=== PATIENT | female | born 1965 | race Caucasian/White ===

== ENCOUNTER 2019-03-01 14:45 | Emergency (ER) | payer SELFPAY ==
[2019-03-01] MEDS ORDERED: Ondansetron PF 4 MG/2 ML Vial ONE (14:57)
[2019-03-01] MEDS ORDERED: Rocuronium Bromide 10 MG/ML (10ML VIAL) ONE (15:00)
[2019-03-01 15:13] LABS: #Basophils 0.2 thou/uL (0.0-0.2); #Eosinphils 0.3 thou/uL (0.0-0.7); #Lymphocytes 5.5 thou/uL (1.20-3.40); #Monocytes 0.6 thou/uL (0.11-0.59); #Neutrophils 7.5 thou/uL (1.40-6.50); %Basophils 1.5 % (0.0-1.0); %Eosinophils 2.3 % (0.0-10.0); %Lymphocytes 39.1 % (21.0-51.0); %Monocytes 4.3 % (0.0-10.0); %Neutrophils 52.9 % (42.0-75.0); Hemoglobin 15.1 g/dL (12.0-16.0); Mean Corpuscular HGB CONC 33.1 g/dL (32.0-36.0); Mean Corpuscular Hemoglobin 29.3 pg (27.0-31.0); Mean Corpuscular Volume 88.6 fL (78.0-98.0); Mean Platelet Volume 7.8 fL (7.4-10.4); Platelet Count 252 thou/uL (130-400); Red Blood Cell (RBC) Count 5.15 mill/uL (4.20-5.40); White Blood Cell (WBC) Count 14.1 thou/uL (4.8-10.8)
[2019-03-01 15:18] LABS: INR-International Normal Ratio 0.9; PTT 37.8 SEC (22.9-36.1); Prothrombin Time 12.7 SEC (12.0-14.7)
[2019-03-01 15:27] LABS: ALT (SGPT) 26 U/L (8-55); AST (SGOT) 30 U/L (5-34); Albumin 4.5 g/dL (3.5-5.0); Alkaline Phosphatase 76 U/L (40-150); Anion Gap 18 mmol/L (10-20); BUN (Urea Nitrogen) 12 mg/dL (9.8-20.1); Bilirubin, Total 0.3 mg/dL (0.2-1.2); Calc. Creatinine Clearance 0 mL/min (70-130); Calcium 9.9 mg/dL (7.8-10.44); Carbon Dioxide 21 mmol/L (22-29); Chloride 103 mmol/L (98-107); Estimated GFR-MDRD 72; Globulin 3.2 g/dL (2.4-3.5); Glucose 94 mg/dL (70-105); Potassium 3.6 mmol/L (3.5-5.1); Protein, Total 7.7 g/dL (6.0-8.3); Sodium 138 mmol/L (136-145)
[2019-03-01] MEDS ORDERED: Lorazepam 2 MG/ML VIAL ONE (15:35)
[2019-03-01] MEDS ORDERED: Fentanyl 100 MCG/2 ML VIAL ONE (15:46)
[2019-03-01] MEDS ORDERED: Midazolam HCl 2 mg/2 ml Vial ONE (15:46)
[2019-03-01] MEDS ORDERED: Midazolam HCl 5 mg/ml Vial ONE (15:46)
--- NOTE | 2019-03-01 15:57 | CT ---
CT HEAD WITHOUT CONTRAST: Date: 03/01/19 Multiple axial tomograms obtained through the head without IV enhancement. INDICATION: Stroke alert. No comparison. FINDINGS: Ventricles have normal size and position. There is an abnormal area of lucency in the left parasylvian region which may involve part of the ins ular cortex. This is poorly evaluated on this noncontrast CT. It could potentially represent early in farct involving insular cortex. Recommend follow-up MRI exam. There is no hemorrhage. No other evidence of mass or infarct. There is a large subcutaneous cystic mass overlying the right parietal bone measuring approximately 5 -6 cm consistent with a large subcutaneous sebaceous cyst or other similar subcutaneous etiology. IMPRESSION: Abnormal lucency in the left parasylvian region anteriorly which may involve insular cortex. Recommen d further evaluation with MRI. Findings relayed to the emergency room physician at the time of dictation. CODE CR. POS: OFF
[2019-03-01] MEDS ORDERED: Sodium Chloride 0.9% 1,000 ML ONE (17:58)
== END 2019-03-01 16:21 | disposition short-term general hospital (02) ==
LOC: NAV ERS 14:45 → EDBD 14:45 → NAV ERS 16:21
DX: I63.30 Cerebral infarction due to thrombosis of unspecified cerebral artery (principal); I69.398 Other sequelae of cerebral infarction; R56.9 Unspecified convulsions; E03.9 Hypothyroidism, unspecified; Z79.899 Other long term (current) drug therapy
CPT/HCPCS: 31500; 70450; 80053; 84484; 85025; 85610; 85730; 93005; 94760; 96374; J2060; J2250; J2405; J2997; J3010; J7050